=== PATIENT | male | born 1980 | race Caucasian/White ===

== ENCOUNTER 2020-10-24 05:46 | Emergency (ER) | payer BC, OTHER ==
[~2020-10-24 05:46] MED LIST: BENTYL 10MG CAP10 MG PO; COLACE100 MG PO; IBUPROFEN800 MG PO; ZOFRAN 4 MG TAB4 MG PO
[2020-10-24 06:45] LABS: HEMOGLOBIN 18.3 gm/dl (14.0-17.5); RED BLOOD COUNT 5.65 M/UL (4.20-5.50); WHITE BLOOD COUNT 8.3 K/UL (4.5-11.0)
[2020-10-24 07:00] LABS: BUN/CREATININE RATIO 20 (0-10)
[2020-10-24] MEDS ORDERED: BENTYL 20MG TAB20 MG PO (09:59)
[2020-10-24] MEDS ORDERED: OMEPRAZOLE20 MG PO (09:59)
== END 2020-10-24 10:19 | disposition home or self-care (01) ==
LOC: ER1 05:46
PROVIDERS: Family Medicine
DX: R10.13 Epigastric pain (principal); I10 Essential (primary) hypertension
CPT/HCPCS: 80053; 81001; 82550; 82553; 83690; 83874; 84484; 85025; 96374; 99284; C9113; J7030; Q9967

== ENCOUNTER → 2021-05-14 | Outpatient (CLI) | payer BC ==
[~2021-05-14] MED LIST changes: +BENTYL 20MG TAB20 MG PO; +OMEPRAZOLE20 MG PO
== END ==
LOC: CT 12:49
DX: I10 Essential (primary) hypertension (principal); K56.609 Unspecified intestinal obstruction, unspecified as to partial versus complete obstruction
CPT/HCPCS: 36415; 82565; 84520; Q9967